=== PATIENT | male | born 1980 | race Caucasian/White ===

== ENCOUNTER 2017-04-15 13:26 | Emergency (ER) | payer OTHER ==
[2017-04-15 13:58] VITALS: BP 121/74
--- NOTE | 2017-04-15 14:53 | UC ---
UC General HPI - HPI Summary HPI Summary: 36 YEAR OLD MALE PRESENTS WITH COMPLAINS OF FATIGUE AND COLD SORE ON HIS RIGHT LOWER LIP. - History of Current Complaint Chief Complaint: UCGeneralIllness Stated Complaint: FATIGUE Time Seen by Provider: 04/15/17 14:51 Hx Obtained From: Patient Onset/Duration: Sudden Onset, Lasting Hours Onset Severity: Moderate Current Severity: Moderate - Allergy/Home Medications Allergies/Adverse Reactions: Allergies Allergy/AdvReac Type Severity Reaction Status Date / Time Aspirin Allergy Unknown Verified 04/15/17 13:59 Reaction Details PMH/Surg Hx/FS Hx/Imm Hx Previously Healthy: Yes - Surgical History Surgical History: None - Social History Alcohol Use: Rare Substance Use Type: None Smoking Status (MU): Never Smoked Tobacco Review of Systems Constitutional: Negative Skin: Negative Eyes: Negative ENT: Other - COLD SORE ON RIGHT LOWER LIP Respiratory: Negative Cardiovascular: Negative Gastrointestinal: Negative Genitourinary: Negative Motor: Negative Neurovascular: Negative Musculoskeletal: Negative Neurological: Negative Psychological: Negative All Other Systems Reviewed And Are Negative: Yes Physical Exam Triage Information Reviewed: Yes Vital Signs: Initial Vital Signs Temp 36.8 C 04/15/17 13:54 Pulse 75 04/15/17 13:54 Resp 12 04/15/17 13:54 BP 121/74 04/15/17 13:54 Pulse Ox 100 04/15/17 13:54 Eye Exam: Normal ENT: Positive: Other: - COLD SORE ON RIGHT LOWER LIP Dental Exam: Normal Neck exam: Normal Neck: Positive: 1 Respiratory Exam: Normal Cardiovascular Exam: Normal Abdominal Exam: Normal Musculoskeletal Exam: Normal Neurological Exam: Normal Psychological Exam: Normal Skin Exam: Normal Course/Dx - Differential Dx - Multi-Symptom Provider Diagnoses: COLD SORE ON RIGHT LOWER LIP Discharge - Discharge Plan Condition: Stable Disposition: HOME Prescriptions: Acyclovir OINT 5%(NF) [Zovirax Oint 5%(NF)] 1 applic .SEE ORDER Q6H #1 tube Acyclovir* [Zovirax 200 MG CAP*] 200 mg PO 5ID #35 cap Patient Education Materials: Oral Herpes Simplex Virus Infections (ED) Forms: *Work Release Referrals: Non Staff,Doctor [Primary Care Provider] -
== END 2017-04-15 15:25 | disposition home or self-care (01) ==
LOC: UCEAST 13:26
DX: B00.1 Herpesviral vesicular dermatitis (principal)
CPT/HCPCS: 99202; G0463